=== PATIENT | female | born 1995 | race Caucasian/White ===

== ENCOUNTER 2019-11-16 17:28 | Emergency (ER) | payer BC ==
[~2019-11-16] VITALS: Ht 162.6 cm; Wt 90.9 kg
[2019-11-16 17:32] VITALS: TEMP 99.2
[2019-11-16 18:00] LABS: COLLECTION METHOD CLEAN CATCH
[2019-11-16 18:05] LABS: MUCOUS Present /lpf; PH 5 (5-8); SQUAMOUS EPITHELIAL 0-2 /hpf; URINE APPEARANCE Clear; URINE BACTERIA None Seen /hpf; URINE BILIRUBIN Negative (NEGATIVE); URINE BLOOD 1+ (NEGATIVE); URINE COLOR Yellow; URINE GLUCOSE Negative (NEGATIVE); URINE KETONE Negative (NEGATIVE); URINE LEUKOCYTE ESTERASE Trace (NEGATIVE); URINE NITRATE Negative (NEGATIVE); URINE PROTEIN(semi-quant) Negative (NEGATIVE); URINE RBC 0-2 /hpf; URINE UROBILINOGEN Negative (NEGATIVE)
[2019-11-16 18:57] VITALS: BP 115/68; PULSE 89
== END 2019-11-16 18:55 | disposition home or self-care (01) ==
LOC: COL.ER 17:28
PROVIDERS: Family Medicine
DX: S30.1XXA Contusion of abdominal wall, initial encounter (principal); S20.212A Contusion of left front wall of thorax, initial encounter; V49.40XA Driver injured in collision with unspecified motor vehicles in traffic accident, initial encounter

== ENCOUNTER 2023-11-19 09:45 | Emergency (ER) | payer BC ==
[~2023-11-19] VITALS: Ht 162.6 cm; Wt 104.5 kg
[2023-11-19 09:51] VITALS: TEMP 98.1
[2023-11-19 11:41] VITALS: BP 127/84; PULSE 86
== END 2023-11-19 11:45 | disposition home or self-care (01) ==
LOC: COL.ER 09:45
DX: I80.02 Phlebitis and thrombophlebitis of superficial vessels of left lower extremity (principal)